=== PATIENT | female | born 1975 | race Caucasian/White ===

== ENCOUNTER 2022-11-06 07:26 | Day surgery (SDC) | payer BC ==
[2022-11-06] MEDS ORDERED: Ringers Lactate 1,000 ML IV ONE (07:52)
[2022-11-06] MEDS ORDERED: propofoL 200 MG/20 ML VIAL IV ONE ×2 (08:23)
[2022-11-06] MEDS ORDERED: LIDOCAINE 1% MPF 5 ML VIAL ONE (08:23)
[2022-11-06 10:13] VITALS: BP 107/64; TEMP 98; O2SAT 100
== END 2022-11-06 08:07 | disposition home or self-care (01) ==
LOC: OR 07:26
PROVIDERS: ATTEND Surgery
DX: Z12.11 Encounter for screening for malignant neoplasm of colon (principal); Z84.81 Family history of carrier of genetic disease; Z53.09 Procedure and treatment not carried out because of other contraindication; E03.9 Hypothyroidism, unspecified; F32.A Depression, unspecified; K80.20 Calculus of gallbladder without cholecystitis without obstruction
CPT/HCPCS: 36415; 84703; J2704 ×2; J2001; J7120